=== PATIENT | female | born 1945 | race Caucasian/White ===

== ENCOUNTER 2017-05-07 02:46 | Emergency (ER) | payer OTHER, SELFPAY ==
[2017-05-07 02:48] VITALS: BP 130/86; PULSE 92; RESP 16; TEMP 36.4; O2SAT 98; BMI 27.5
--- NOTE | 2017-05-07 02:49 | ED.RN ---
CALLED IN LATASHA FROM [facility]. SHE SAID SHE WILL BE IN TO TEST PATIENT.
--- NOTE | 2017-05-07 02:59 | ED.VISSUMM ---
- ER Visit Summary Date of Service: 05/07/17 Chief Complaint: [] Left hand inflammation itching from possible spider bite at work History of Present Illness: The patient is a 71 F planing of left hand itching since yesterday. She noticed 3 small bites and thinks she picked him up at work. She has never seen a spider but thinks she was bit by spider. She has had this happen at home remotely and was seen in the emergency department. She was prescribed triamcinolone cream but did not use at this time. She does use an anti-itch cream. 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 Physical Examination: Vital signs reviewed General: Well-nourished well-developed Head: Normocephalic atraumatic Eyes: Pupils equal round and reactive to light extraocular movements intact ENT: TMs clear no hemotympanum no trauma Neck: Nontender full range of motion Cardiovascular: Regular rate rhythm no murmurs normal S1-S2 Respiratory: No distress clear to auscultation bilaterally chest nontender Abdomen: Soft nontender nondistended normal bowel sounds no masses Back: Nontender no CVA tenderness Extremities: Nontender active range of motion ?4 extremities 2 small punctate 1 mm lesions left proximal dorsal hand. Consistent with small insect bites. Mild swelling to the dorsum of the hand. No cellulitis. Very small blood blister.. Dried cracked skin consistent with eczema hands. Skin: See above Neuro alert oriented cranial nerves II through XII intact normal strength sensation reflexes Test Results: [] Emergency Department Course and Treatment: [] Patient given a dose of prednisone and will use ice for the inflammation. She will continue to use triamcinolone cream as needed. She will follow-up as an outpatient. Treatment Plan: [] Disposition: [] Impression: [] Left hand dermatitis and itching with reported insect bites This note was generated with [employer] dictation software. It may contain incorrect words, spelling, and punctuation that were not noted in review of the chart prior to signing ED Disposition - Plan for ED Patient: Chief Complaint: Upper Extremity Injury Referrals: Care Physician,No Primary [Primary Care Provider] -
--- NOTE | 2017-05-07 03:01 | ED.DEP ---
ED Disposition - Plan for ED Patient: Disposition: Home or Assisted Living Chief Complaint: Upper Extremity Injury Instructions: Self-Care for Skin Rashes Prescriptions: Prednisone [Deltasone] 40 mg PO DAILY #10 tab Referrals: Care Physician,No Primary [[facility] Care Provider[facility] [GROUP OF PHYSICIANS] -
[2017-05-07 04:09] VITALS: RESP 18
== END 2017-05-07 04:10 | disposition home or self-care (01) ==
PROVIDERS: Emergency Provider Emergency Medicine
DX: L30.9 Dermatitis, unspecified (principal); L29.9 Pruritus, unspecified; S60.562A Insect bite (nonvenomous) of left hand, initial encounter; W57.XXXA Bitten or stung by nonvenomous insect and other nonvenomous arthropods, initial encounter; Y93.9 Activity, unspecified; Y92.9 Unspecified place or not applicable; K21.9 Gastro-esophageal reflux disease without esophagitis; Z79.82 Long term (current) use of aspirin; Z79.899 Other long term (current) drug therapy
CPT/HCPCS: 99283

== ENCOUNTER → 2017-05-16 14:31 | Outpatient (CLI) | payer MEDICARE, SELFPAY | PROVIDERS: Visit Provider Physician Assistant | DX: L30.8 Other specified dermatitis (principal) | CPT/HCPCS: 87070; 87075; 87205 ==

== ENCOUNTER 2017-12-17 14:54 | Emergency (ER) | payer OTHER, SELFPAY ==
[2017-12-17 14:55] VITALS: BP 141/82; PULSE 84; RESP 18; TEMP 36.6; O2SAT 97; BMI 29.8
--- NOTE | 2017-12-17 15:52 | ED.DCSUM_ITS ---
- ER Visit Summary Date of Service: 12/17/17 Chief Complaint: Back pain and right knee injury History of Present Illness: The patient is a 72 F with no medical issues who presents with right knee and decreased back pain after a fall at work. 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 She sussy her back in her body and is having headache, neck pain, left-sided back pain, and right knee pain. She has not taken any medication for these. It happened just prior to arrival. Patient has no known medical history and takes 1 baby aspirin daily. She denies any numbness or tingling, weakness in the arms or legs. No other complaints. Physical Examination: Vital signs: afebrile, hemodynamically stable, no hypoxia on room air General: well nourished, well developed, in no distress Skin: warm, dry, no rash, no pallor HEENT: Scalp is nontender, no crepitus, contusions, hematoma or abrasions; normocephalic and atraumatic; PERRL, EOMI, moist mucous membranes, no maxillofacial trauma Spine: yudith is supple, no midline deformities, tenderness or step-offs, full active range of motion, mild left paraspinal tenderness; no midline tenderness, deformities or step-offs to the thoracic and lumbar spine, diffuse paraspinal tenderness on the left thoracic and lumbar regions Cardiovascular: regular rate and rhythm without murmurs, no peripheral edema, 2+ pulses all distal extremities chest nontender Respiratory: No increased work of breathing, lungs are clear to auscultation bilaterally, no rales, rhonchi or wheezing Abdominal: Abdomen is soft, nontender with normoactive bowel sounds, no guarding or rebound, no masses MSK: Moves all extremities, no deformities, normal strength pelvis is stable, full active flexion and extension of the bilateral knees, no tenderness, ecchymosis, abrasions or lacerations or deformity to the right patella Neuro: Awake and alert, oriented ?4. No facial droop, sensation and motor function intact and symmetric Test Results: [] Emergency Department Course and Treatment: Patient presents mainly with a right knee and left back complaints after falling at work. No imaging indicated at this time. Patient is ambulating without difficulty. No neuro deficits on her exam. Patient was offered and declined pain medication. She will be given a prescription for Flexeril to use in case she has increased muscle soreness in the next couple days. Worker's Comp. paperwork filled out. Patient discharged home. Treatment Plan: [] Disposition: [] Impression: Right knee contusion, left thoracic and lumbar strain, mechanical fall This note was generated with [employer] dictation software. It may contain incorrect words, spelling, and punctuation that were not noted in review of the chart prior to signing ED Disposition - Plan for ED Patient: Chief Complaint: Back Referrals: Care Physician,No Primary [Primary Care Provider] -
--- NOTE | 2017-12-17 15:52 | ED.DEP ---
ED Disposition - Plan for ED Patient: Disposition: Home or Assisted Living Chief Complaint: Back Instructions: ED Sprain Strain Lumbar, ED Contusion Lower Ext Prescriptions: Cyclobenzaprine [Flexeril] 5 mg PO TID PRN PRN #15 tab PRN Reason: Muscle Spasm Referrals: Care Physician,No Primary [Primary Care Provider] - Joe Penn MD [STAFF PHYSICIAN] - As Needed Additional Instructions: Use your Tylenol as needed for pain. You may use the Flexeril to help with any muscle spasms in your back or neck. Follow-up with your workers comp corporate care as instructed by your employer. If you have any worsening of your condition or any new concerning symptoms, please return immediately to the emergency department for another evaluation.
[2017-12-17 16:01] VITALS: BP 127/79; PULSE 79; RESP 16; O2SAT 96
[2017-12-17 16:06] VITALS: BP 127/79; PULSE 79; RESP 16; O2SAT 98
== END 2017-12-17 16:30 | disposition home or self-care (01) ==
LOC: ED 16:21
PROVIDERS: Emergency Provider Emergency Medicine
DX: S80.01XA Contusion of right knee, initial encounter (principal); S29.012A Strain of muscle and tendon of back wall of thorax, initial encounter; S39.012A Strain of muscle, fascia and tendon of lower back, initial encounter; M54.2 Cervicalgia; R51 Headache; W01.0XXA Fall on same level from slipping, tripping and stumbling without subsequent striking against object, initial encounter; Y93.9 Activity, unspecified; Y92.9 Unspecified place or not applicable
CPT/HCPCS: 99282

== ENCOUNTER 2018-06-10 10:35 | Emergency (ER) | payer MEDICARE, SELFPAY ==
[2018-06-10 10:38] VITALS: BP 159/85; PULSE 106; RESP 18; TEMP 37.1; O2SAT 96; BMI 26.5
--- NOTE | 2018-06-10 11:25 | ED.VISSUMM ---
- ER Visit Summary Date of Service: 06/10/18 Chief Complaint: Cold History of Present Illness: The patient is a 72 F who states that on she began to have sneezing nasal congestion and rhinorrhea and a cough. She notes a subjective fever. She states she has been doing nothing for this. After a couple days that it did not resolve family thought she should come to the emergency room. The patient denies any dyspnea or chest pain. No vomiting or diarrhea. She is been eating normally. She does not have a primary care physician. She denies any significant medical history other than reflux. When asked directly she does note that she was told she had atrial fibrillation in the past. Physical Examination: Afebrile vital signs are stable Gen: Well-nourished well-developed Head: Normocephalic atraumatic Eyes: Perrl EOMI ENT: TMs clear nasal congestion and clear rhinorrhea moist mucous membranes Neck: Supple no lymphadenopathy no JVD nontender CVS: Regular rate rhythm no murmurs normal S1-S2 Respiratory: No distress clear to auscultation bilaterally chest nontender Abdomen: Soft nontender nondistended normal bowel sounds no masses Back: Nontender Extremity: Nontender no edema Skin: Normal color no rash Neuro: alert orientated ?3 CN II-XII intact normal strength sensation reflexes gait cerebellar Psych: Normal affect normal mood Test Results: Influenza swab was negative Emergency Department Course and Treatment: Patient will be discharged home with supportive care. Return if worsening or concerns. Impression: 1. Viral URI This note was generated with [employer] dictation software. It may contain incorrect words, spelling, and punctuation that were not noted in review of the chart prior to signing ED Disposition - Plan for ED Patient: Disposition: Home or Assisted Living Instructions: ED Upper Resp Infec No Abx Tx Referrals: Mekhi Robbins MD [STAFF PHYSICIAN] - As Needed
[2018-06-10 12:23] VITALS: BP 167/103; RESP 16
== END 2018-06-10 12:24 | disposition home or self-care (01) ==
PROVIDERS: Emergency Provider Emergency Medicine
DX: J06.9 Acute upper respiratory infection, unspecified (principal); K21.9 Gastro-esophageal reflux disease without esophagitis; I48.91 Unspecified atrial fibrillation; Z87.891 Personal history of nicotine dependence; Z79.82 Long term (current) use of aspirin; Z79.899 Other long term (current) drug therapy
CPT/HCPCS: 87804; 99282

== ENCOUNTER 2023-05-31 18:48 | Emergency (ER) | payer MEDICARE, SELFPAY ==
[2023-05-31 18:49] VITALS: BP 175/92; PULSE 94; RESP 16; TEMP 36.3; O2SAT 100; BMI 32.1
--- NOTE | 2023-05-31 19:08 | EX.ED.UPPERE ---
HPI History of Present Illness HPI Narrative: Patient presents with a laceration to her left index finger that occurred this morning. Patient states she was putting something in a bazan and the leg closed onto her finger. Patient states the bleeding has been persistent throughout the day. Patient states her pain is dull. Patient denies any paresthesias or weakness. Patient states nothing makes it better nothing makes it worse. Patient states she does not want any immunizations including tetanus. Patient is right-hand dominant. Chief Complaint: Laceration Informant: patient Occured/Mechanism Mechanism/Context: Yes direct blow Onset/Context/Timing Onset: Today Context: Sudden Onset Timing: Continuous Quality of Pain: Dull Location: Left index finger Worsened by: Nothing Relieved by: Nothing Associated Symptoms Associated Symptoms: Negative for Parasthesia, Weakness or Loss of Funtion Narrative Tetanus Immunization: Unknown [facility] Medical History (Updated 05/31/23 @ 20:[address] Amor Stein DO) Arthritis Spider bite Home Medications aspirin 81 mg chewable tablet 81 mg PO DAILY@0800 02/03/15 [History Last Taken Unknown] omeprazole 20 mg tablet,delayed release 20 mg PO DAILY 05/07/17 [History Last Taken Unknown] Allergy/AdvReac Type Severity Reaction Status Date / Time ibuprofen [From Motrin] AdvReac Nausea Verified 05/31/23 18:51 Family History Other Cancer Heart disease Parkinson disease Surgical History (Updated 05/31/23 @ 19:[address] Amor Stein DO) Hx of vein stripping Social History Smoking Status: Never smoker alcohol intake: current alcohol intake frequency: 0-2 drinks per day Alcohol type: beer ROS ROS ED Constitutional Constitutional ED: Denies chills or fever(s) Eyes Eyes: Denies blurry vision or change in vision ENT ENT ED: Denies rhinorrhea or sore throat Cardiovascular Cardiovascular: Denies chest pain or palpitations Respiratory/Chest Respiratory/Chest: Denies cough or dyspnea Gastrointestinal Gastrointestinal: Denies nausea or vomiting Genitourinary Genitourinary ED: Denies dysuria or hematuria Musculoskeletal Musculoskeletal: Denies back pain or neck pain Integumentary Denies abscess or rash Neurologic Neurologic: Denies headache(s) or weakness Allergic/Immunologic Allergic/Immunologic ED: Denies mouth swelling or urticaria EXAM Physical Exam Const Vital Signs: 05/31/23 18:49 Temperature 97.3 F L Temperature Source Temporal Pulse Rate 94 Respiratory Rate 16 Blood Pressure 175/92 H Blood Pressure Mean 119 Pulse Ox 100 Oxygen Delivery Method Room Air Positive well nourished and well developed General Appearance ED: well developed and NAD HEENT Reports moist mucous membranes Neck full ROM and supple Extremity Extremity Narrative: There is mild tenderness over the middle phalanx of the left index finger. There is no deformity noted. There is no ecchymosis noted. There is full range of motion of the MP, PIP, and DIP joints of the left index finger. Strength is 5/5 in extension of the MP, PIP, and DIP joints. Sensation was intact to light touch in all digits. Capillary refill was less than 2 seconds in all digits. Neuro oriented x3, CN's II-XII intact bilaterally, moves all extremities, no focal motor deficits and no sensory deficits noted Sensorium / Orientation: alert Motor Exam: strength 5/5 throughout Psych mental status grossly normal Skin Skin Narrative: There is a 2.5 cm L-shaped laceration over the dorsal aspect of the middle phalanx of the left index finger. There is moderate gapping of the wound margins. There is no foreign body noted. There is no tendon laceration noted. MDM MDM MDM Narrative Medical decision making narrative: Patient was advised of the need for laceration repair. Patient refused tetanus booster. The wound was cleaned and irrigated with copious amounts of normal saline. The wound was anesthetized with 1% plain lidocaine via digital block. The wound was closed with 4 simple interrupted #4-0 nylon sutures under sterile technique. Patient tolerated the procedure well. Bacitracin dressing was applied. Patient was instructed to keep the wound clean and dry. Patient was instructed to follow-up with her primary care physician in 5 to 7 days for wound recheck and suture removal. Patient understood and was agreeable with the plan. All questions were answered. Discharge Plan Triage Chief Complaint: Laceration ED Provider: Amor Stein Dx/Rx/DC Orders Clinical Impression: Laceration of left index finger, GERD (gastroesophageal reflux disease) Instructions: ED Laceration, Hand: All Closures Prescriptions: No Action aspirin 81 MG tablet,chewable 81 mg PO DAILY@0800 omeprazole 20 MG tablet,delayed release (DR/EC) 20 mg PO DAILY Primary Care Provider: Care Physician,No Primary Referrals: Nichole Roberto MD [Med Staff - Mail Room Clerk] - 7 Days for suture removal Care Physician,No Primary [Primary Care Provider] - Disposition Disposition: Home, Self Care
[2023-05-31] MEDS: Lidocaine 1% (20 ml mdv) 20 ML Vial INFILT (20:08)
[2023-05-31 20:43] VITALS: BP 169/89; PULSE 74; RESP 14; TEMP 36.1; O2SAT 98
== END 2023-05-31 20:44 | disposition home or self-care (01) ==
PROVIDERS: Emergency Provider Emergency Medicine; Visit Provider Emergency Medicine
DX: S61.211A Laceration without foreign body of left index finger without damage to nail, initial encounter (principal); K21.9 Gastro-esophageal reflux disease without esophagitis; W26.8XXA Contact with other sharp object(s), not elsewhere classified, initial encounter
CPT/HCPCS: 12001; 99283

== ENCOUNTER → 2023-06-07 | Outpatient (CLI) | payer MEDICARE, SELFPAY ==
--- NOTE | 2023-06-07 13:20 | RAD_ITS ---
STUDY: X-RAY - LEFT ANKLE REASON FOR EXAM: Female, 77 years old. Left ankle pain TECHNIQUE: 3 view(s) of the ankle. COMPARISON: None. FINDINGS: Normal visualized distal tibia and fibula. Normal medial and lateral malleoli. Normal tibiotalar articulation and ankle mortise. Plantar spur. The visualized subtalar, talonavicular, calcaneocuboid and tarsal articulations are normal. Soft tissue swelling. RAD/Ankle min 3 Views IMPRESSION: Soft tissue swelling. No fracture is seen. Small plantar spur. Electronically Signed: Zain Davis MD at 13:57 EDT ,
== END | disposition home or self-care (01) ==
LOC: RAD 13:37 → MTRAD 13:56
PROVIDERS: Referring Provider Physician Assistant Surgical; Visit Provider Physician Assistant Surgical
DX: S96.912A Strain of unspecified muscle and tendon at ankle and foot level, left foot, initial encounter (principal)
CPT/HCPCS: 73610